=== PATIENT | female | born 1995 | race Caucasian/White ===

== ENCOUNTER 2018-09-29 05:53 | Inpatient (IN) ==
[2018-09-29] MEDS ORDERED: ONDANSETRON 4 MG/2 ML VIAL IV PRN ×2 (06:04→18:35)
[2018-09-29] MEDS ORDERED: MEPERIDINE 50 MG/1 ML VIAL IV PRN (06:04)
[2018-09-29 06:27] LABS: Basophils % 0.3 % (0.0-0.8); Eosinophils % 0.3 % (0.00-10.9); Hematocrit 34.8 VOL% (35.7-47.0); Hemoglobin 11.4 GM/DL (12.0-16.0); Immature Granulocytes % 0.9 %; Immature Granulocytes Absolute 0.11 #; Lymphocytes # 1.9 10*3/uL (1.4-4.0); Lymphocytes % 16.2 % (21.3-54.2); Mean Corpuscular HGB Conc 32.8 GM/DL (32-36); Mean Corpuscular Hemoglobin 27 PG (27-34); Mean Corpuscular Volume 82.1 FL (87-102); Mean Platelet Volume 13.2 FL (9.6-12.0); Monocytes # 0.8 10*3/uL (0.11-0.8); Monocytes % 6.5 % (1.7-12.7); Neutrophils # 9.1 10*3/uL (1.4-7.4); Neutrophils % 75.8 % (38.7-73.9); Platelet Count 201 T/CUMM (130-400); Red Blood Count 4.24 MC/CUMM (3.8-5.5); Red Cell Distribution Width 15.4 % (9.3-17.3); White Blood Count 11.9 T/CUMM (4-12)
[2018-09-29] MEDS ORDERED: OXYTOCIN/LR 20 UNIT/1,000 ML BAG IV SCH (06:30)
[2018-09-29 06:45] LABS: Albumin 2.5 G/DL (3.4-5.0); Bilirubin,Total 0.8 MG/DL (0.2-1.0); Osmolality,Calculated 273.8 MOS/KG (273-304); Potassium 3.8 MMOL/L (3.5-5.1); Total Protein 6.6 G/DL (6.4-8.3)
[2018-09-29] MEDS ORDERED: AMPICILLIN INJ 2,000 MG in SODIUM CHLORIDE 0.9% 100 ML IV ONE ×2 (07:11→07:30)
[2018-09-29] MEDS: LACTATED RINGERS 1,000 ML IV SCH ×2 (07:23→10:52)
[2018-09-29] MEDS ORDERED: ONDANSETRON 4 MG/2 ML VIAL IV ONE (07:53)
[2018-09-29] MEDS ORDERED: hydrOXYzine HCL 25 MG/1 ML VIAL IM PRN (07:53)
[2018-09-29] MEDS ORDERED: NALOXONE 0.4 MG/ML VIAL IV PRN (07:53)
[2018-09-29] MEDS ORDERED: FAMOTIDINE 20 MG/2 ML VIAL IV ONE (07:53)
[2018-09-29] MEDS ORDERED: PROMETHAZINE 25 MG/1 ML VIAL IM ONE (07:53)
[2018-09-29] MEDS ORDERED: CITRIC ACID/SODIUM CITRATE 30 ML UDCUP PO ONE (07:53)
[2018-09-29] MEDS ORDERED: ePHEDrine 50 MG/ML AMP IV PRN (07:53)
[2018-09-29] MEDS ORDERED: diphenhydrAMINE 50 MG/1 ML VIAL IV PRN ×2 (07:53)
[2018-09-29] MEDS ORDERED: fentaNYL 2 MCG/ROPIV 0.2% EPID 100 ML EPIDURAL SCH (08:00)
[2018-09-29] MEDS: AMPICILLIN INJ 1,000 MG in SODIUM CHLORIDE 0.9% 100 ML IV SCH ×2 (11:46→15:50)
[2018-09-29 13:18] LABS: Apearance,Urine Slightly Hazy (Clear); Bilirubin,Urine Negative (Negative); Blood, Urine Negative (Negative); Calcium Oxalate Crystals,Urine Occasional /HPF (Few); Glucose,Urine (UA) 50 mg/dL (Negative); Hyaline Casts,Urine 1 /LPF (0-3); Ketones,Urine 5 mg/dL (Negative); Mucus,Urine Moderate /LPF (Occasional); Nitrite,Urine Negative (Negative); Protein,Urine 30 MG/DL; RBC,Urine 1 /HPF (0-4); Squamous Epithelial Cell,Urine Occasional /HPF (0-10); Urine Color Yellow (Yellow); Urine Specific Gravity 1.029 (1.001-1.035); Urine Urobilinogen < 2.0 EU/DL (0.2-1.0); WBC,Urine 2 /HPF (0-6)
[2018-09-29] MEDS ORDERED: OXYTOCIN/LR 30 UNIT/1,000 ML BAG IV ONE (17:18)
[2018-09-29] MEDS ORDERED: OXYTOCIN 10 UNIT/ML VIAL IM ONE (17:18)
[2018-09-29] MEDS ORDERED: ceFAZolin 3,000 MG in SYRINGE 1 EACH IV ONE (17:36)
[2018-09-29] MEDS ORDERED: SIMETHICONE CHEW 80 MG TABLET PO PRN (18:35)
[2018-09-29] MEDS ORDERED: OXYTOCIN/LR 20 UNIT/1,000 ML BAG IV ONE (18:35)
[2018-09-29] MEDS ORDERED: ACETAMINOPHEN 325 MG TABLET PO PRN (18:35)
[2018-09-29] MEDS ORDERED: RHO(D) IMMUNE GLOBULIN 300 MCG SYRINGE IM ONE (18:35)
[2018-09-29] MEDS ORDERED: MAGNESIUM HYDROXIDE SUSP 30 ML UDCUP PO PRN (18:35)
[2018-09-29] MEDS ORDERED: GLUCAGON 1 MG VIAL IM PRN (18:40)
[2018-09-29] MEDS ORDERED: DEXTROSE 50% 25 GM/50 ML VIAL IV PRN (18:40)
[2018-09-29] MEDS ORDERED: LIDOCAINE MPF 2% /EPI 20 ML VIAL ONE (18:46)
[2018-09-29] MEDS ORDERED: MORPHINE 10 MG/10 ML VIAL ONE (18:46)
[2018-09-29] MEDS ORDERED: PHENYLEPHRINE 1 MG/10 ML SYRINGE IV ONE (18:48)
[2018-09-29] MEDS ORDERED: SODIUM BICARBONATE 2.4 MEQ/5 ML VIAL ONE (18:56)
[2018-09-29] MEDS ORDERED: LACTATED RINGERS 1,000 ML IV ONE (18:56)
[2018-09-29] MEDS ORDERED: LACTATED RINGERS 1,000 ML IV SCH (19:00)
[2018-09-29 19:13] LABS: Cord Venous Blood HCO3 20.7 MMOL/L; Cord Venous Blood PCO2 43.8 MMHG; Cord Venous Blood PO2 23.4
[2018-09-29 19:16] LABS: Cord Arterial Blood HCO3 18.5 MMOL/L
[2018-09-30] MEDS: DOCUSATE SODIUM 100 MG CAPSULE PO SCH ×3 (02:08→21:02)
[2018-09-30] MEDS: INSULIN REGULAR 100 UNIT/ML SUBCUT SCH ×4 (02:08→17:25)
[2018-09-30] MEDS: ceFAZolin 1,000 MG in SYRINGE 1 EACH IV SCH ×2 (02:17→09:45)
[2018-09-30 06:04] LABS: Basophils % 0.2 % (0.0-0.8); Eosinophils % 0.1 % (0.00-10.9); Hemoglobin 9.8 GM/DL (12.0-16.0); Immature Granulocytes % 0.7 %; Lymphocytes # 1.9 10*3/uL (1.4-4.0); Lymphocytes % 13.3 % (21.3-54.2); Mean Corpuscular HGB Conc 32.7 GM/DL (32-36); Mean Corpuscular Hemoglobin 27 PG (27-34); Mean Corpuscular Volume 83.6 FL (87-102); Monocytes % 7.3 % (1.7-12.7); Neutrophils # 11.1 10*3/uL (1.4-7.4); Neutrophils % 78.4 % (38.7-73.9); Platelet Count 158 T/CUMM (130-400); Red Blood Count 3.59 MC/CUMM (3.8-5.5); Red Cell Distribution Width 15.4 % (9.3-17.3); White Blood Count 14.1 T/CUMM (4-12)
[2018-09-30] MEDS: MULTIVITAMIN (PRENATAL) TABLET PO SCH ×2 (08:30→08:47)
[2018-09-30] MEDS: FERROUS SULFATE 325 MG TABLET PO SCH ×2 (08:30→21:02)
[2018-09-30] MEDS: METOCLOPRAMIDE 10 MG TABLET PO SCH ×3 (11:55→23:55)
[2018-09-30] MEDS: IBUPROFEN 800 MG TABLET PO PRN ×2 (13:14→21:02)
[2018-10-01] MEDS: INSULIN REGULAR 100 UNIT/ML SUBCUT SCH ×2 (00:54→06:21)
[2018-10-01] MEDS: METOCLOPRAMIDE 10 MG TABLET PO SCH (06:20)
[2018-10-01 07:07] VITALS: BP 118/61
[2018-10-01] MEDS: MULTIVITAMIN (PRENATAL) TABLET PO SCH ×2 (08:36→08:37)
[2018-10-01] MEDS: FERROUS SULFATE 325 MG TABLET PO SCH (08:36)
[2018-10-01] MEDS: DOCUSATE SODIUM 100 MG CAPSULE PO SCH (08:36)
== END 2018-10-01 11:40 | disposition home or self-care (01) | DRG 540 ==
LOC: N.LDOUT 05:53 → N.LD 05:54 → N.OB 21:10
PROVIDERS: ADMIT Obstetrics & Gynecology; ATTEND Obstetrics & Gynecology
PROC: LDCSECT (ICD-10-PCS; 2018-09-29 17:15)